=== PATIENT | male | born 1995 | race Hispanic/Latino ===

== ENCOUNTER 2018-05-12 03:35 | Emergency (ER) | payer SELFPAY | END 2018-05-12 04:14 | LOC: NAV ERS 03:35 | DX: Z04.1 Encounter for examination and observation following transport accident (principal); F10.129 Alcohol abuse with intoxication, unspecified; V49.9XXA Car occupant (driver) (passenger) injured in unspecified traffic accident, initial encounter | CPT/HCPCS: 99283 ==

== ENCOUNTER 2018-09-20 16:00 | Emergency (ER) | payer OTHER, SELFPAY ==
[2018-09-20] MEDS ORDERED: Ibuprofen 200 MG TAB ONE (16:24)
== END 2018-09-20 16:40 | disposition home or self-care (01) ==
LOC: NAV ERS 16:00
DX: J02.9 Acute pharyngitis, unspecified (principal)
CPT/HCPCS: 87081; 87430; 99283